=== PATIENT | male | born 1955 | race African-American/Black ===

== ENCOUNTER 2022-08-24 15:51 | Outpatient (CLI) | payer OTHER, MEDICARE, SELFPAY ==
--- NOTE | ~2022-08-24 | CT_ITS ---
EXAMINATION:CT diagnostic chest wo con DATE: 08/24/2022 16:15 INDICATION: Lesion of lung. TECHNIQUE: Computed tomography (CT) of the chest was performed without intravenous contrast. Automate d exposure control and iterative reconstruction technique were employed. The dose-length product (DLP ) was 69.64 mGy-cm. COMPARISON: None. FINDINGS: There is mild atelectasis bilaterally. Calcified left lung nodules and calcified left hilar lymph nodes are consistent with old granulomas disc disease. There is a 4 mm nodule at minor fissure . There is a 3 mm nodule at right major fissure. There is a 3 mm nodule at left major fissure. No ple ural effusion. There are nodules in the thyroid measuring up to 2.7 cm. The heart size is normal. No pericardial effusion. There is mild bilateral gynecomastia. There is mild thoracic spondylosis. IMPRESSION: 1. Small pulmonary nodules, likely benign. 2. Multinodular goiter. Consider thyroid ultrasound for risk stratification. Reviewed, dictated and finalized at location B.
== END 2022-08-24 15:52 ==
LOC: MICIMG 15:56
PROVIDERS: PCP Internal Medicine; Visit Provider Internal Medicine
DX: R91.8 Other nonspecific abnormal finding of lung field (principal); E04.2 Nontoxic multinodular goiter
CPT/HCPCS: 71250

== ENCOUNTER → 2023-11-18 07:40 | Outpatient (CLI) | payer BC, MEDICARE, SELFPAY ==
--- NOTE | ~2023-11-18 | US_ITS ---
Thyroid ultrasound. Clinical History: Goiter Findings: Real-time sonography of the thyroid gland was performed. The right lobe measures 8.0 x 3.8 x 2.9 cm. The left lobe measures 7.1 x 2.3 x 2.3 cm. The isthmus is 6 mm in AP diameter. There is a 1.6 x 1.6 x 1.7 cm hypoechoic solid nodule at the posterior left lower pole. There is a 2. 7 x 2.6 x 3.2 cm solid, iso to hyperechoic nodule at the right lower pole. There is an adjacent 1.8 x 1.9 x 1.7 cm hypoechoic solid nodule at the right midpole. Impression: TR-3 anterior-4 nodule bilaterally, as detailed above. Given size of the nodules, biopsy should be co nsidered for these nodules to establish histologic diagnosis, however given the presence of large mul tiple bilateral thyroid nodule, multinodular goiter is statistically the most likely diagnosis. Reviewed, dictated and finalized at location . TITCHER Impression: TR-3 anterior-4 nodule bilaterally, as detailed above. Given size of the nodule s, biopsy should be considered for these nodules to establish histologic diagno sis, however given the presence of large multiple bilateral thyroid nodule, mul tinodular goiter is statistically the most likely diagnosis.
--- NOTE | ~2023-11-18 | CT_ITS ---
CT Scan of the Chest without Contrast: Clinical Indication: Lung lesion Technique: Contiguous sections were acquired throughout the chest without intravenous contrast. Dose reduction technique was used on this scan by utilizing automated exposure control and iterative recon struction technique. The dose-length product (DLP) was 189.54 mGy-cm. COMPARISON: 08/24/2022 Findings: Stable hypodense right thyroid lobe nodule. There is no evidence of any significant mediastinal, hilar or axillary lymphadenopathy. The mediastin al soft tissues appear normal. There is no evidence of pleural or pericardial effusion. Stable 3 mm right middle lobe pulmonary nodule. Calcified left lower lobe granuloma noted. Images through the upper abdomen reveal no abnormalities. Impression: Stable 3 mm right middle lobe pulmonary nodule. This is most likely benign. Reviewed, dictated and finalized at [facility]. [employer] Impression: Stable 3 mm right middle lobe pulmonary nodule. This is most likely benign.
== END ==
PROVIDERS: PCP Internal Medicine; Visit Provider Internal Medicine
DX: R91.1 Solitary pulmonary nodule (principal)
CPT/HCPCS: 71250; 76536